=== PATIENT | female | born 1935 | race African-American/Black ===

== ENCOUNTER 2018-08-16 12:36 | Emergency (ER) | payer OTHER ==
[~2018-08-16] VITALS: Ht 167.6 cm; Wt 78.0 kg
[2018-08-16] MEDS ORDERED: VALIUM5 MG PO (13:24)
[2018-08-16 13:46] VITALS: BP 162/78
== END 2018-08-16 13:49 | disposition home or self-care (01) ==
LOC: ER 12:36
DX: S16.1XXA Strain of muscle, fascia and tendon at neck level, initial encounter (principal); E11.9 Type 2 diabetes mellitus without complications; Z90.710 Acquired absence of both cervix and uterus; Z87.891 Personal history of nicotine dependence; V89.2XXA Person injured in unspecified motor-vehicle accident, traffic, initial encounter; Y93.89 Activity, other specified; Y92.89 Other specified places as the place of occurrence of the external cause; Y99.8 Other external cause status

== ENCOUNTER 2019-09-07 14:52 | Emergency (ER) | payer OTHER ==
[~2019-09-07] VITALS: Ht 167.6 cm; Wt 76.7 kg
[~2019-09-07 14:52] MED LIST: VALIUM5 MG PO
[2019-09-07] MEDS ORDERED: METHOCARBAMOL500 M2 PO (16:21)
[2019-09-07] MEDS ORDERED: TRAMADOL 50 MG50 MG PO (16:21)
[2019-09-07 16:54] VITALS: BP 167/66
== END 2019-09-07 16:40 | disposition home or self-care (01) ==
LOC: ER 14:52
DX: S09.90XA Unspecified injury of head, initial encounter (principal); G44.209 Tension-type headache, unspecified, not intractable; E11.9 Type 2 diabetes mellitus without complications; M53.1 Cervicobrachial syndrome; Z90.710 Acquired absence of both cervix and uterus; Z87.891 Personal history of nicotine dependence; W19.XXXA Unspecified fall, initial encounter; Y93.89 Activity, other specified; Y92.89 Other specified places as the place of occurrence of the external cause; Y99.8 Other external cause status